=== PATIENT | female | born 1970 | race African-American/Black ===

== ENCOUNTER 2016-06-09 02:35 | Emergency (ER) | payer BC ==
[~2016-06-09] VITALS: Ht 172.7 cm; Wt 77.5 kg
[~2016-06-09 02:35] MED LIST: ANAPROX DS550 M1 PO; VICODIN,LORT1 TABLET PO
[2016-06-09] MEDS ORDERED: HYCODAN SYRUP480 ML PO (04:53)
[2016-06-09] MEDS ORDERED: VENTOLIN HFA18 GM IH (04:53)
[2016-06-09 05:59] VITALS: BP 124/76
== END 2016-06-09 06:03 | disposition home or self-care (01) ==
LOC: EME 02:35
DX: J02.9 Acute pharyngitis, unspecified (principal); R05 Cough
CPT/HCPCS: 71020; 87651 90; 94640; 99281; 99283

== ENCOUNTER 2016-10-11 15:32 | Emergency (ER) | payer OTHER, BC ==
[~2016-10-11] VITALS: Ht 172.7 cm; Wt 75.0 kg
[~2016-10-11 15:32] MED LIST changes: +HYCODAN SYRUP480 ML PO; +VENTOLIN HFA18 GM IH
[2016-10-11 17:34] VITALS: BP 137/92
== END 2016-10-11 17:41 | disposition home or self-care (01) ==
LOC: EME 15:32
DX: S60.222A Contusion of left hand, initial encounter (principal); S60.221A Contusion of right hand, initial encounter; S80.01XA Contusion of right knee, initial encounter; S80.02XA Contusion of left knee, initial encounter; S20.219A Contusion of unspecified front wall of thorax, initial encounter; V49.40XA Driver injured in collision with unspecified motor vehicles in traffic accident, initial encounter; Z87.891 Personal history of nicotine dependence
CPT/HCPCS: 71010; 73130; 99281; 99284